=== PATIENT | female | born 1975 | race Caucasian/White ===

== ENCOUNTER 2022-01-29 15:13 | Outpatient (CLI) | payer OTHER, SELFPAY | END 2022-01-29 15:14 | disposition home or self-care (01) | LOC: CSHMAMMO 15:13 | PROVIDERS: ATTEND Obstetrics & Gynecology | DX: Z12.31 Encounter for screening mammogram for malignant neoplasm of breast (principal) | CPT/HCPCS: 77063; 77067 ==

== ENCOUNTER 2022-03-07 13:52 | Outpatient (CLI) | payer BC ==
[2022-03-07 15:15] LABS: Bilirubin Neg (Negative); Blood, Urine 10 (Negative); Clarity Clear (Clear); Glucose, Urine (Dipstick) Normal (Negative); Ketone, Urine Negative (Negative); Leukocyte Negative (Negative); Nitrite Negative (Negative); Protein, Urine (Dipstick) Negative (Neg-Trace); Specific Gravity, Urine 1.025 (1.002-1.036); Urobilinogen Normal mg/dL (Less than 2)
[2022-03-07 15:17] LABS: Hemoglobin 12.7 g/dL (12.0-15.5); Mean Corpuscular HGB CONC 33.2 g/dL (32.0-36.0); Mean Corpuscular Hemoglobin 32.3 pg (27.0-33.0); Mean Corpuscular Volume 97.2 fl (81.6-98.3); Platelet Count 267 10x3/uL (150-450); RBC Distribution Width 13.2 % (11.5-14.5); Red Blood Cell (RBC) Count 3.93 10x6/uL (3.90-5.03); White Blood Cell (WBC) Count 6.1 10x3/uL (3.5-10.5)
[2022-03-07 15:39] LABS: BHCG - Serum Negative (NEGATIVE)
[2022-03-07 15:40] LABS: Pregs Control Background? CLEAR/WHITE (CLR/WHITE); Pregs Control Bar Appear? YES (CONTROL BAR)
== END 2022-03-07 13:53 | disposition home or self-care (01) ==
LOC: CSHLAB 13:52
PROVIDERS: ATTEND Obstetrics & Gynecology
DX: Z01.812 Encounter for preprocedural laboratory examination (principal); Z20.822 Contact with and (suspected) exposure to COVID-19
CPT/HCPCS: 81003; 84703; 85027; 87811

== ENCOUNTER 2022-03-11 10:36 | Day surgery (SDC) | payer BC ==
[2022-03-07 17:25] VITALS: BMI 25.3
[2022-03-11] MEDS ORDERED: Lidocaine 1% MPF 2 ML VIAL ONE (11:09)
[2022-03-11] MEDS ORDERED: Ondansetron PF 4 MG/2 ML Vial ONE (12:38)
[2022-03-11] MEDS ORDERED: Lidocaine 1% PF 5 ML VIAL ONE (12:38)
[2022-03-11] MEDS ORDERED: Ketorolac Tromethamine 30 MG/ML VIAL ONE (12:38)
[2022-03-11] MEDS ORDERED: Dexamethasone 20 MG/5 ML VIAL ONE (12:38)
[2022-03-11] MEDS ORDERED: Midazolam HCl 2 mg/2 ml Vial ONE ×2 (12:38→13:19)
[2022-03-11] MEDS ORDERED: PROPOFOL 0 ML ONE (12:38)
[2022-03-11] MEDS ORDERED: Fentanyl 100 MCG/2 ML VIAL ONE ×2 (12:38→12:56)
[2022-03-11] MEDS ORDERED: CEFAZOLIN 2 GM VIAL ONE (12:43)
[2022-03-11] MEDS ORDERED: PROPOFOL 20 ML ONE (12:56)
[2022-03-11] MEDS ORDERED: Meperidine HCl/PF 25 MG/ML VIAL ONE ×2 (13:32→14:33)
== END 2022-03-11 15:55 | disposition home or self-care (01) ==
LOC: CSHSDC 10:36
PROVIDERS: ATTEND Obstetrics & Gynecology
PROC: 0U5B8ZZ Destruction of Endometrium, Via Natural or Artificial Opening Endoscopic (ICD-10-PCS; principal; 2022-03-11)
DX: N80.0 Endometriosis of uterus (principal); N84.0 Polyp of corpus uteri; N93.9 Abnormal uterine and vaginal bleeding, unspecified; Z20.822 Contact with and (suspected) exposure to COVID-19; R93.89 Abnormal findings on diagnostic imaging of other specified body structures; Z79.899 Other long term (current) drug therapy
CPT/HCPCS: 88305; J0690; J1100; J1885; J2175; J2250; J2405; J2704; J3010

== ENCOUNTER 2024-02-22 12:09 | Outpatient (CLI) | payer BC | END 2024-02-22 12:10 | disposition home or self-care (01) | LOC: CSHMAMMO 12:09 | PROVIDERS: ATTEND Obstetrics & Gynecology | DX: Z12.31 Encounter for screening mammogram for malignant neoplasm of breast (principal) | CPT/HCPCS: 77063; 77067 ==

== ENCOUNTER 2025-02-22 10:38 | Outpatient (CLI) | payer BC | END 2025-02-22 10:39 | disposition home or self-care (01) | LOC: CSHMAMMO 10:38 | PROVIDERS: ATTEND Obstetrics & Gynecology | DX: Z12.31 Encounter for screening mammogram for malignant neoplasm of breast (principal) | CPT/HCPCS: 77063; 77067 ==